=== PATIENT | male | born 1950 ===

== ENCOUNTER → 2023-08-27 05:20 | Outpatient (REF) | payer OTHER, SELFPAY ==
[2023-08-27 11:17] LABS: Urine Albumin Negative (Neg - Trace); Urine Bilirubin Negative (Negative); Urine Character Clear (Clear); Urine Color Yellow; Urine Glucose Negative (Negative); Urine Ketone Trace (Negative); Urine Leukocyte Trace (Negative); Urine Nitrite Negative (Negative); Urine Occult Blood Negative (Negative); Urine Specific Gravity 1.015 (<1.030); Urine Urobilinogen Negative (Neg - 1+)
[2023-08-27 12:03] LABS: Urine Red Blood Cell 0-2 /HPF (0-2); Urine Squamous Cell 0-2 /LPF (Few)
== END ==
LOC: OLABN 05:20
PROVIDERS: ATTENDING PHYSICIAN Student in an Organized Health Care Education/Training Program
DX: R35.0 Frequency of micturition (principal)
CPT/HCPCS: 81003; 81015; 87086

== ENCOUNTER 2023-09-01 19:24 | Emergency (ER) | payer OTHER, SELFPAY ==
[2023-09-01 19:26] VITALS: BP 135/85
[2023-09-01 19:27] VITALS: BP 135/85
[2023-09-01 20:00] VITALS: BP 123/82
[2023-09-01 21:00] VITALS: BP 117/80
--- NOTE | 2023-09-01 22:01 | ED.GENMED ---
History of Present Illness
General
Chief Complaint: Fall
Source: ambulance crew
Time Seen by Provider: 09/01/23 21:47
History of Present Illness
History of Present Illness:
72-year-old male sent to the emergency room for evaluation of fall with head injury. No LOC. No anticoagulants. Patient has dementia and is unable to provide any history.
Phy Exam
Physical Exam
Physical Exam:
General: Awake, Alert, Oriented X3. No acute distress.
Vitals: unremarkable
Head: Abrasion right forehead and left posterior scalp. No laceration
Eyes: Pupils equal, EOMI
Throat: Airway intact, no exudates
Neck: Trachea midline, no tenderness to palpation
Lungs: Clear and equal b/l
Heart: Regular rate, no murmurs
Abd: Soft, Nontender, No pulsatile mass
Neuro: Nonfocal
Skin: Warm, dry, no rash
Extremities: pulses equal b/l, no edema
Course
Orders/Labs/Results
Orders:
Orders
09/01/23 20:11
CT Cervical Spine W/o Iv Contr Urgent
Comment:
Reason For Exam: fall
CT Head W/o Iv Contrast Urgent
Comment:
Reason For Exam: fall
Vital Signs
Initial and Last Documented VS:
Initial Vital Signs
Temp Pulse Resp BP Pulse Ox
98.7 F 90 18 135/85 95
09/01/23 19:26 09/01/23 19:26 09/01/23 19:26 09/01/23 19:26 09/01/23 19:26
Last Documented Vital Signs
Temp Pulse Resp BP Pulse Ox
98.7 F 90 18 136/88 97
09/01/23 19:26 09/01/23 19:26 09/01/23 19:26 09/01/23 23:00 09/01/23 23:30
MDM/Problems Addressed
Differential Diagnosis Includes:
Subdural, subarachnoid hemorrhage, contusion, cervical spine fracture
MDM/Problems Addressed:
Imaging here is negative for acute injury. Patient is at his baseline per family. Stable for discharge back to his facility.
*Radiology
Radiology exam reviewed: radiology read reviewed
*Pulse Oximetry
Patient hypoxic: no
*Critical Care Note
Total Time (30-74mins, 75-104mins- exclusive of procedures): Not Applicable
ED Attending Note
-
Portions of this chart may have been created with voice recognition software.� Occasional wrong word or��sound alike� substitutions may have occurred due to the inherent limitations of voice recognition software.
Discharge Plan
Departure
Patient Disposition: Residential/SNF
Date of Disposition: 09/01/23
Time of Disposition: 22:44
Condition: Good
Discharge Problem:
Head injury
Instructions: Head Injury in Adults (DC), Preventing falls in adults
Referrals:
Arnol Jaramillo DO [Family Provider] -
Interventions
Interventions:
*Risk Screen - Suicide Last Done: 09/01/23 19:30
*General Assessment Last Done: 09/01/23 21:15
*Neglect/Abuse Screening Last Done: 09/01/23 19:30
ED- Fall Risk Assessment Last Done: 09/01/23 23:37
*ED COVID-19 Vaccine History Last Done: 09/01/23 19:30
*Nursing Disposition Last Done: 09/01/23 23:37
ED-Musculoskeletal Assessment Last Done: 09/01/23 19:53
ED- Neurological Assessment Last Done: 09/01/23 19:53
ED-Skin Assessment Last Done: 09/01/23 19:53
Discharge Date and Time
Discharge Date/Time: 09/01/23 23:38
Print Language: [id number]
[2023-09-01 22:46] VITALS: BP 129/81
[2023-09-01 23:00] VITALS: BP 136/88
== END 2023-09-01 23:38 ==
LOC: EMR 19:24
PROVIDERS: EMERGENCY PHYSICIAN Emergency Medicine; FAMILY PHYSICIAN Student in an Organized Health Care Education/Training Program
DX: S09.90XA Unspecified injury of head, initial encounter (principal); W19.XXXA Unspecified fall, initial encounter; F03.90 Unspecified dementia, unspecified severity, without behavioral disturbance, psychotic disturbance, mood disturbance, and anxiety
CPT/HCPCS: 99284; 70450; 72125

== ENCOUNTER → 2023-09-12 09:15 | Outpatient (REF) | payer OTHER, SELFPAY ==
[2023-09-12 10:12] LABS: Hematocrit 42.5 % (39.0-52.0); Hemoglobin 14.6 g/dL (13.0-18.0); Mean Corp Hgb Conc. 34.4 g/dL (33.0-37.0); Mean Corpuscular Hgb 31.5 pg (27.0-31.0); Mean Corpuscular Volume 91.8 fL (80.0-94.0); Mean Platelet Volume 10.2 fL (7.4-10.4); Platelet Count 172 10^3/uL (130-400); Red Blood Cell Count 4.63 10^6/uL (4.70-6.10); Red Cell Dist. Width 11.9 % (11.5-14.5); White Blood Cell Count 6.2 10^3/uL (4.8-10.8)
[2023-09-12 10:23] LABS: ALT (SGPT) 15 U/L (0-50); AST (SGOT) 21 U/L (17-59); Albumin 3.5 g/dl (3.5-5.0); Alkaline Phosphatase 59 U/L (38-126); Blood Urea Nitrogen 17 mg/dl (9-20); Calcium 8.7 mg/dl (8.4-10.2); Carbon Dioxide 29 mmol/L (22-30); Chloride 106 mmol/L (98-107); Glucose 77 mg/dl (70-99); HDL Cholesterol 33 mg/dl; LDL Cholesterol, Calculated 68 mg/dl; Potassium 4.3 mmol/L (3.5-5.1); Sodium 140 mmol/L (135-145); Total Bilirubin 0.3 mg/dl (0.2-1.3); Total Cholesterol 115 mg/dl (50-199); Triglyceride 71 mg/dl (10-149); Very Low Density Lipoprotein 14 mg/dl (0-30); eGFR > 60.00
[2023-09-12 10:28] LABS: Depakane 45.7 ug/ml (50.0-120.0)
[2023-09-12 12:03] LABS: Glycohemoglobin (HgbA1c) 5.4 % (4.0-5.6)
== END ==
LOC: OLABN 09:15
PROVIDERS: ATTENDING PHYSICIAN Student in an Organized Health Care Education/Training Program
DX: I10 Essential (primary) hypertension (principal); E78.5 Hyperlipidemia, unspecified; Z51.81 Encounter for therapeutic drug level monitoring; R73.9 Hyperglycemia, unspecified
CPT/HCPCS: 80053; 80061; 80164; 83036; 85027

== ENCOUNTER → 2023-10-17 10:14 | Outpatient (REF) | payer OTHER, SELFPAY ==
[2023-10-17 11:04] LABS: % Basophils 0.4 % (0-2); % Eosinophils 1.8 % (0-6); % Immature Granulocytes 0.3 % (0-0.5); % Lymphocytes 43.4 % (20.5-51.1); % Monocytes 11.3 % (1.7-9.3); % Neutrophils 42.8 % (42.2-75.2); Absolute Eosinophils 0.1 10^3/uL (0-0.7); Absolute Lymphocytes 3.3 10^3/uL (1.2-3.4); Absolute Monocytes 0.9 10^3/uL (0.1-0.6); Absolute Neutrophils 3.3 10^3/uL (1.4-6.5); Hematocrit 40.4 % (39.0-52.0); Hemoglobin 13.7 g/dL (13.0-18.0); Mean Corp Hgb Conc. 33.9 g/dL (33.0-37.0); Mean Corpuscular Hgb 31.4 pg (27.0-31.0); Mean Corpuscular Volume 92.4 fL (80.0-94.0); Mean Platelet Volume 10.4 fL (7.4-10.4); Nucleated Red Blood Cells % 0 % (-); Platelet Count 220 10^3/uL (130-400); Red Blood Cell Count 4.37 10^6/uL (4.70-6.10); Red Cell Dist. Width 12.2 % (11.5-14.5); White Blood Cell Count 7.7 10^3/uL (4.8-10.8)
[2023-10-17 11:18] LABS: ALT (SGPT) 17 U/L (0-50); AST (SGOT) 25 U/L (17-59); Albumin 3.3 g/dl (3.5-5.0); Alkaline Phosphatase 58 U/L (38-126); Blood Urea Nitrogen 18 mg/dl (9-20); Calcium 8.6 mg/dl (8.4-10.2); Carbon Dioxide 29 mmol/L (22-30); Chloride 101 mmol/L (98-107); Glucose 80 mg/dl (70-99); Potassium 4.5 mmol/L (3.5-5.1); Sodium 139 mmol/L (135-145); Total Bilirubin 0.6 mg/dl (0.2-1.3); eGFR > 60.00
== END ==
LOC: OLABN 10:14
PROVIDERS: ATTENDING PHYSICIAN Student in an Organized Health Care Education/Training Program
DX: I10 Essential (primary) hypertension (principal)
CPT/HCPCS: 36415; 80053; 85025